=== PATIENT | male | born 1985 | race Caucasian/White ===

== ENCOUNTER → 2017-02-09 | Outpatient (CLI) | payer BC ==
[~2017-02-09] MED LIST: CLIN300C2 PO
[2017-02-09 13:05] LABS: BASO % 0.6 %; BASO ABS # 0.03 K/uL (0-0.2); COMPLETE YES; HEMATOCRIT 41.7 % (42-52); IG% 0.2 %; LYMPH % 41.9 %; LYMPH ABS # 2.06 K/uL (1.2-3.4); MEAN CELL VOLUME 85.8 fL (80-100); MEAN CORPUSCULAR HEMOGLOBIN 29.2 pg (25-34); MEAN CORPUSCULAR HGB CONC 34.1 g/dl (32-36); MONO % 6.7 %; NEUT % 48.6 %; PLATELET COUNT 245 K/uL (130-400); RED BLOOD COUNT 4.86 M/uL (4.7-6.1); WHITE BLOOD COUNT 4.92 K/uL (4.8-10.8)
[2017-02-09 13:18] LABS: PARTIAL THROMBOPLASTIN RATIO 1.1; PROTHROMBIN TIME (PATIENT) 10.6 SECONDS (9.0-12.0)
[2017-02-09 13:31] LABS: POTASSIUM 3.9 mmol/L (3.5-5.1)
== END | disposition home or self-care (01) ==
LOC: C.LAB1850 12:20
DX: Z01.818 Encounter for other preprocedural examination (principal)

== ENCOUNTER → 2017-02-10 | Day surgery (SDC) | payer BC ==
[2017-02-09 14:37] VITALS: Ht 171.5 cm; Wt 92.7 kg
[~2017-02-10] VITALS: Ht 171.5 cm; Wt 92.7 kg
[~2017-02-10] MED LIST changes: +ATROPINE SULFATE 0.1 MG/ML 5ML SYR IV PRN; +DEXAMETHASONE SOD INJ 4 MG/ML VIAL ONE; +EpHEDrine SULFATE INJ 50 MG/ML AMP IV PRN; +FENTANYL CITRATE INJ 50 MCG/1 ML 2 ML VIAL IV PRN; +FENTANYL CITRATE INJ 50 MCG/1 ML 2 ML VIAL ONE; +FLUMAZENIL 0.1 MG/1 ML 10 ML VIAL IV PRN; +HYDROCODONE/ACETAMOPHEN 5/325MG TAB PO PRN; +LACTATED RINGER'S 1000ML 1,000 ML IV SCH; +LIDOCAINE HCL 2% 2 ML VIAL (20MG/ML) ONE; +LIDOCAINE/EPINEPHRINE 1% INJ 50 ML VIAL ONE; +MIDAZOLAM HCL 1 MG/ML 2ML VIAL ONE; +NALOXONE HCL 0.4 MG/1 ML VIAL/CARP IV PRN; +ONDANSETRON INJ 2 MG/ML 2 ML VIAL IV PRN; +ONDANSETRON INJ 2 MG/ML 2 ML VIAL ONE; +PROMETHAZINE HCL INJ 12.5 MG in SODIUM CHLORIDE 0.9% 50ML 50 ML IV PRN; +PROPOFOL IV EMULSION 10 MG/ML 20 ML VIAL IV ONE
[2017-02-10] MEDS: CLINDAMYCIN PHOS 150 MG/ML 2 ML VIAL IV SCH ×2 (09:09→10:11)
--- NOTE | 2017-02-10 09:18 | History & Physical Bridge - [place] ---
H&P Re-Evaluation Bridge Note: I have examined the patient, reviewed the History & Physical and in the interval since the performance of the History & Physical I have noted the following changes of clinical significance: No changes noted
--- NOTE | 2017-02-10 10:25 | [facility] Operative Report ---
Operative Report Operative Date Feb 10, 2017. Pre-Operative Diagnosis Infected Sebaceous Cyst of Skin Left Neck Post-Operative Diagnosis same Procedure(s) Performed Left Neck Incision And Drainage Of Abscess Surgeon Dr. Fabio Flores Residential Plumber Surgeon(s) 0 Estimated Blood Loss 10CC Findings INFECTED L POSTERIOR NECK SEBACEOUS CYST Specimens C&S Left Neck Abscess I attest to the content of the Intraoperative Record and any orders documented therein. Any exceptions are noted below.
--- NOTE | 2017-02-10 10:35 | Discharge Instructions ---
Discharge Instructions Date of Service Feb 10, 2017. Admission Reason for Admission: Infected Sebaceous Cyst Of Skin Discharge Discharge Diagnosis / Problem: SAME Discharge Goals Goal(s): Therapeutic intervention Activity Recommendations Activity Limitations: as noted below LIGHT ACTIVITY FOR 72HRS; NO DRIVING WHILE ON [place]CO . Instructions / Follow-Up Instructions / Follow-Up 1. FOLLOW UP APPOINTMENT CHANGED TO Monday02/13/17 AT 8AM. PLEASE ENSURE PATIENT GOES TO THIS FOLLOW UP APPOINTMENT. Current Hospital Diet Patient's current hospital diet: Discharge Diet Recommended Diet: Regular Diet Procedures Procedures Performed: Left Neck Incision And Drainage Of Abscess Pending Studies Studies pending at discharge: no Medical Emergencies . Who to Call and When: Medical Emergencies: If at any time you feel your situation is an emergency, please call 911 immediately. . Non-Emergent Contact Non-Emergency issues call your: Surgeon . . "Provider Documentation" section prepared by Tank Flores. . VTE Core Measure Inpt VTE Proph given/why not?: SCD's
[2017-02-10 11:13] VITALS: TEMP 36.3
--- NOTE | 2017-02-10 11:16 | Anesthesia Progress Nt - [facility] ---
Anesthesia Post Op Note Date & Time Feb 10, 2017 at 11:15 Vital Signs Pain Intensity: 2 Vital Signs Past 12 Hours Date Time Temp Pulse Resp B/P (MAP) Pulse Ox O2 Delivery O2 Flow Rate FiO2 02/10/17 11:07 36.4 69 16 107/75 96 Room Air 02/10/17 11:02 67 14 02/10/17 11:02 67 14 95 02/10/17 11:01 107/77 02/10/17 10:57 65 15 99 02/10/17 10:57 67 15 02/10/17 10:56 105/73 02/10/17 10:52 64 14 97 02/10/17 10:52 65 14 02/10/17 10:51 94/62 02/10/17 10:47 61 17 02/10/17 10:47 61 17 97 02/10/17 10:46 103/63 02/10/17 10:42 65 14 97 02/10/17 10:42 65 14 02/10/17 10:41 99/66 02/10/17 10:40 68 17 96 02/10/17 10:40 67 17 02/10/17 10:36 102/68 02/10/17 10:35 65 13 02/10/17 10:35 65 13 97 02/10/17 10:31 96/65 02/10/17 10:30 36.1 64 12 96/65 98 Mask 6 02/10/17 07:59 36.4 66 18 120/82 (95) Room Air Notes Mental Status: alert / awake / arousable, participated in evaluation Pt Amnestic to Procedure: Yes Nausea / Vomiting: adequately controlled Pain: adequately controlled Airway Patency, RR, SpO2: stable & adequate BP & HR: stable & adequate Hydration State: stable & adequate Anesthetic Complications: no major complications apparent
[2017-02-10 11:43] VITALS: BP 119/79; PULSE 68; O2SAT 98
--- NOTE | 2017-02-10 13:59 | OPERATIVE REPORT ---
DATE OF OPERATION: 02/10/2017 PREOPERATIVE DIAGNOSIS: Infected left posterior neck sebaceous cyst/abscess. POSTOPERATIVE DIAGNOSIS: Same. PROCEDURE: Incision and drainage of left posterior neck abscess/infected sebaceous cyst. SURGEON: Dr. Flores. ANESTHESIA: General laryngeal mask airway. ESTIMATED BLOOD LOSS: 10 mL. FINDINGS: Large fluctuant left posterior neck mass with infected sebaceous material within it with moderate inflammation. SPECIMENS: Left neck abscess fluid for Gram stain, culture and sensitivity. COMPLICATIONS: None. INDICATIONS FOR THE PROCEDURE: The patient is a 31-year-old male with a long history of a left posterior neck mass which sounds like it might have been a sebaceous cyst which recently got infected last week. He went to a [facility] and was placed on Bactrim, but continued to have progressive infection. He was referred to general surgery and Dr. Chao Valencia saw him yesterday in the office and asked me to evaluate and manage this patient. The patient was seen in the office and had approximately 4 cm fluctuant left posterior superficial neck mass with the likely diagnosis of an infected sebaceous cyst. He presents for the above-mentioned procedure on an outpatient elective basis. DETAILS OF PROCEDURE: After informed consent had been obtained from the patient, the patient was wheeled to the operating room and placed on the operating table in the supine position. Monitors were placed. After induction of general anesthesia via laryngeal mask airway, the patient's head was gently turned to the right and a marking pen was used to outline the planned 2 cm incision in a natural skin crease overlying the fluctuant area. A total of 2 mL of 1% lidocaine with 1:100,000 epinephrine was used to inject the skin and subcutaneous tissues overlying the planned incision site. The skin of the left neck was then prepped and draped in usual sterile fashion. A #15 scalpel was then used to make the incision through the skin and immediately a large amount of purulent sebaceous material was encountered. This was completely evacuated using manual pressure and suction. A finger dissection of the abscess cavity was then performed and all the sebaceous material was removed. The wound was copiously irrigated with clindamycin antibiotic irrigation. The decision was made to place 1/4 inch iodoform gauze into the abscess cavity. Approximately 10 inches of iodoform gauze packing was placed. Sterile 4 x 4 fluffs followed by Kerlix dressing were then placed. This marked the end of the case. The patient tolerated the procedure well. There were no apparent complications. The patient had his laryngeal mask airway removed and was transferred to the recovery room in stable condition. I attest to the content of the Intraoperative Record and any orders documented therein. Any exception s are noted below.
== END | disposition home or self-care (01) ==
LOC: X.SURG 07:47
DX: L02.11 Cutaneous abscess of neck (principal); L72.3 Sebaceous cyst